=== PATIENT | male | born 1965 | race Caucasian/White ===

== ENCOUNTER → 2020-05-10 | Outpatient (REF) | payer OTHER | LOC: M LAB REF 09:27 | PROVIDERS: ATTEND Dermatology | DX: C44.310 Basal cell carcinoma of skin of unspecified parts of face (principal); L57.0 Actinic keratosis | CPT/HCPCS: 11642; 11643; 13132; 13133; 88305; G0463 ==

== ENCOUNTER 2021-08-28 07:23 | Day surgery (SDC) | payer OTHER ==
[~2021-08-28] VITALS: Ht 177.8 cm; Wt 91.2 kg
[~2021-08-28 07:23] MED LIST: ATOR40TA75 PO; CONRAY-60 60% 50ML VIAL (Q9961) As Ordered ONE; LISI5TAB11 PO; LR 1,000 ML IV ONE; TAMS1CAP17 PO; ceFAZolin SOD 2 GM in IV 1 EA IV ONE
[2021-08-28] MEDS ORDERED: dexameTHASONE 4 MG/ML 1ML VIAL (J1100 PER 1MG) As Ordered ONE (08:17)
[2021-08-28] MEDS ORDERED: MIDAZOLAM INJ 2MG/2ML VIAL (J2250 PER 1MG) As Ordered ONE (08:17)
[2021-08-28] MEDS ORDERED: propofoL 200 MG/20 ML VIAL As Ordered ONE (08:17)
[2021-08-28] MEDS ORDERED: ONDANSETRON 4MG/2ML VIAL As Ordered ONE (08:17)
[2021-08-28] MEDS ORDERED: fentaNYL 100 MCG/2 ML INJECTION As Ordered ONE (08:17)
[2021-08-28] MEDS ORDERED: LIDOCAINE 2% 100MG/5ML SDV (FOR ANES.) As Ordered ONE (08:17)
[2021-08-28] MEDS ORDERED: PHENYLephrine 500MCG 5ML (100MCG/ML) SYRINGE As Ordered ONE (09:43)
[2021-08-28] MEDS ORDERED: ePHEDrine SULFATE 25 MG/5 ML(5MG/ML) SYRINGE As Ordered ONE (09:43)
[2021-08-28] MEDS ORDERED: ACETAMINOPHEN 1000MG 100ML IV BTL (OFIRMEV) (J0131 PER 10MG) As Ordered ONE (09:48)
[2021-08-28] MEDS ORDERED: LR 1,000 ML IV SCH (10:20)
[2021-08-28] MEDS ORDERED: ONDANSETRON 4MG/2ML VIAL IV PRN (10:20)
[2021-08-28] MEDS ORDERED: fentaNYL 100 MCG/2 ML INJECTION IV PRN (10:20)
[2021-08-28] MEDS ORDERED: HYDROMORPHONE HCL 0.5 MG/ 0.5 ML SYRINGE (J1170 PER 1) IV PRN (10:20)
[2021-08-28] MEDS ORDERED: oxyCODONE 5MG TAB PO PRN (10:20)
[2021-08-28] MEDS ORDERED: PERCOCET 5MG/325MG TAB PO PRN (10:25)
[2021-08-28 10:45] VITALS: BP 123/72
[2021-08-31 14:09] LABS: CA Oxalate Dihy 10 % (.); Ca Ox Monohydrate 90 % (.); Size 6x4 mm (.)
== END 2021-08-28 11:09 | disposition home or self-care (01) ==
LOC: M SDC 07:23
PROVIDERS: ATTEND Urology
DX: N20.1 Calculus of ureter (principal); N13.39 Other hydronephrosis; I10 Essential (primary) hypertension; E78.00 Pure hypercholesterolemia, unspecified; R06.83 Snoring; Z87.442 Personal history of urinary calculi; Z79.899 Other long term (current) drug therapy
CPT/HCPCS: 52332; 52352; 74420; 82365; C1769; C1894; C2617; J0131; J0690; J1100; J2250; J2405; J3010; Q9961

== ENCOUNTER → 2022-03-09 | Outpatient (CLI) | payer OTHER ==
[~2022-03-09] MED LIST changes: -CONRAY-60 60% 50ML VIAL (Q9961) As Ordered ONE; -LR 1,000 ML IV ONE; -ceFAZolin SOD 2 GM in IV 1 EA IV ONE
== END ==
LOC: M PLAIMG 12:11
PROVIDERS: ATTEND Urology
DX: N20.0 Calculus of kidney (principal)

== ENCOUNTER → 2022-09-13 | Outpatient (REF) | payer OTHER | LOC: M SFHCDERM 18:13 | PROVIDERS: ATTEND Dermatology | DX: L90.5 Scar conditions and fibrosis of skin (principal) ==

== ENCOUNTER → 2023-03-12 | Outpatient (CLI) | payer OTHER | LOC: M RAD 07:36 | PROVIDERS: ATTEND Physician Assistant | DX: N20.0 Calculus of kidney (principal) ==

== ENCOUNTER → 2023-05-06 | Outpatient (CLI) | payer OTHER ==
[~2023-05-06] MED LIST changes: +ACET-907 PO; +IBUP-1022 PO
== END ==
LOC: M EKG 12:49
PROVIDERS: ATTEND Anesthesiology
DX: Z01.818 Encounter for other preprocedural examination (principal)

== ENCOUNTER 2023-06-06 10:00 | Day surgery (SDC) | payer OTHER ==
[~2023-06-06] VITALS: Ht 177.8 cm; Wt 95.7 kg
[~2023-06-06 10:00] MED LIST changes: +fentaNYL 100 MCG/2 ML INJECTION As Ordered ONE
[2023-06-06] MEDS ORDERED: LR 1,000 ML IV SCH (10:20)
[2023-06-06] MEDS ORDERED: LIDOCAINE W/EPINEPHRINE 1% 20ML VIAL As Ordered ONE (10:39)
[2023-06-06] MEDS ORDERED: propofoL 200 MG/20 ML VIAL As Ordered ONE ×3 (10:43→11:56)
[2023-06-06] MEDS ORDERED: LIDOCAINE 2% 100MG/5ML SDV (FOR ANES.) As Ordered ONE (10:43)
[2023-06-06] MEDS ORDERED: MIDAZOLAM INJ 2MG/2ML VIAL As Ordered ONE (10:48)
[2023-06-06 12:40] VITALS: BP 139/81; TEMP 97.2; O2SAT 98
== END 2023-06-06 12:58 | disposition home or self-care (01) ==
LOC: M SDC 10:00
PROVIDERS: ATTEND Surgery
DX: D17.1 Benign lipomatous neoplasm of skin and subcutaneous tissue of trunk (principal); R06.83 Snoring; I10 Essential (primary) hypertension; E78.00 Pure hypercholesterolemia, unspecified; Z79.899 Other long term (current) drug therapy
CPT/HCPCS: 21933; 88304; J2250; J3010

== ENCOUNTER → 2023-06-11 | Outpatient (REF) | payer OTHER ==
[~2023-06-11] MED LIST changes: -fentaNYL 100 MCG/2 ML INJECTION As Ordered ONE
== END ==
LOC: M SFHCDERM 17:21
PROVIDERS: ATTEND Dermatology
DX: C44.310 Basal cell carcinoma of skin of unspecified parts of face (principal)

== ENCOUNTER → 2023-08-20 | Outpatient (CLI) | payer OTHER | LOC: M ONCR 07:46 | PROVIDERS: ATTEND General Practice | DX: C44.41 Basal cell carcinoma of skin of scalp and neck (principal); Z71.2 Person consulting for explanation of examination or test findings; Z79.899 Other long term (current) drug therapy; Z80.8 Family history of malignant neoplasm of other organs or systems; Z80.41 Family history of malignant neoplasm of ovary; Z98.890 Other specified postprocedural states ==

== ENCOUNTER → 2023-09-02 | Outpatient (CLI) | payer OTHER | LOC: M PLARAD 11:48 | PROVIDERS: ATTEND Dermatology | DX: C44.319 Basal cell carcinoma of skin of other parts of face (principal) | CPT/HCPCS: 78816; A9552 ==

== ENCOUNTER 2023-09-11 13:54 | Outpatient (RCR) | payer OTHER | END 2023-10-01 | LOC: M ONCR 13:54 | PROVIDERS: ATTEND General Practice | DX: Z51.0 Encounter for antineoplastic radiation therapy (principal); C44.41 Basal cell carcinoma of skin of scalp and neck ==

== ENCOUNTER → 2023-11-01 | Outpatient (RCR) | payer OTHER | LOC: M ONCR 10-07 08:18 | PROVIDERS: ATTEND General Practice | DX: Z51.0 Encounter for antineoplastic radiation therapy (principal); C44.41 Basal cell carcinoma of skin of scalp and neck ==

== ENCOUNTER 2023-11-11 07:40 | Outpatient (RCR) | payer OTHER | END 2023-12-01 | LOC: M ONCR 07:40 | PROVIDERS: ATTEND General Practice | DX: Z51.0 Encounter for antineoplastic radiation therapy (principal); C44.41 Basal cell carcinoma of skin of scalp and neck ==

== ENCOUNTER → 2023-12-11 | Outpatient (CLI) | payer OTHER | LOC: M ONCR 09:17 | PROVIDERS: ATTEND General Practice | DX: C44.41 Basal cell carcinoma of skin of scalp and neck (principal); Z92.3 Personal history of irradiation ==

== ENCOUNTER → 2024-03-09 | Outpatient (CLI) | payer OTHER | LOC: M WUC 14:39 | PROVIDERS: ATTEND Physician Assistant | DX: N20.0 Calculus of kidney (principal) ==

== ENCOUNTER → 2024-06-12 | Outpatient (CLI) | payer OTHER | LOC: M ONCR 08:42 | PROVIDERS: ATTEND General Practice | DX: Z08 Encounter for follow-up examination after completed treatment for malignant neoplasm (principal); Z85.828 Personal history of other malignant neoplasm of skin; Z98.890 Other specified postprocedural states; Z92.3 Personal history of irradiation; Z79.899 Other long term (current) drug therapy ==

== ENCOUNTER → 2025-01-19 | Outpatient (REF) | payer OTHER | LOC: M SFHCDERM 17:06 | PROVIDERS: ATTEND Physician Assistant | DX: D09.9 Carcinoma in situ, unspecified (principal) ==

== ENCOUNTER → 2025-03-12 | Outpatient (CLI) | payer OTHER ==
[~2025-03-12] MED LIST changes: -IBUP-1022 PO; +IBUP600T42 PO
== END ==
LOC: M WUC 08:53
PROVIDERS: ATTEND Physician Assistant
DX: N20.0 Calculus of kidney (principal)

== ENCOUNTER → 2025-05-05 | Outpatient (REF) | payer OTHER | LOC: M SFHCDERM 09:16 | PROVIDERS: ATTEND Physician Assistant | DX: C44.41 Basal cell carcinoma of skin of scalp and neck (principal) ==